=== PATIENT | female | born 1995 | race Caucasian/White ===

== ENCOUNTER 2018-04-03 14:30 | Emergency (ER) | payer BC, OTHER ==
[~2018-04-03] VITALS: Ht 170.2 cm; Wt 77.1 kg
[2018-04-03] MEDS ORDERED: MIRENA1 EACH MISC (15:07)
== END 2018-04-03 17:21 | disposition home or self-care (01) ==
LOC: ED 14:30
DX: R19.7 Diarrhea, unspecified (principal); Z88.5 Allergy status to narcotic agent; Z88.8 Allergy status to other drugs, medicaments and biological substances; Z79.899 Other long term (current) drug therapy
CPT/HCPCS: 80053; 81001; 84703; 85025; 87493; 96360; 96361; 99284-25; J7030

== ENCOUNTER 2025-02-14 20:33 | Emergency (ER) | payer OTHER ==
[~2025-02-14] VITALS: Ht 170.2 cm; Wt 80.0 kg
[~2025-02-14 20:33] MED LIST: MIRENA1 EACH MISC
[2025-02-14 21:08] LABS: BASOPHILS 0.6 % (0.1-1.2); EOSINOPHILS 1.7 % (0.7-5.8); LYMPHOCYTES 25.9 % (19.3-51.7); MCH 29.9 PG (25.6-32.2); MCHC 33.5 g/dL (32.2-35.5); MCV 89.4 fL (79.4-94.8); MONOCYTES 7.0 % (4.7-12.5); NEUTROPHILS 64.6 % (34.0-71.1); RBC 4.61 M/uL (3.93-5.22)
[2025-02-14] MEDS ORDERED: FAMOTIDINE 20 MG/ 2 ML VIAL IV ONE (21:15)
[2025-02-14 21:32] LABS: ALT (SGPT) 22.0 U/L (14-59); AST (SGOT) 17.0 U/L (15-37); GLOMERULAR FILTRATION RATE,EST 121.0 mL/min (>60); PROTEIN, TOTAL 8.0 g/dL (6.4-8.2); UREA NITROGEN 6.0 mg/dL (7-18)
[2025-02-15 00:09] LABS: BLOOD/HGB, URINE TRACE-L (Negative); KETONE, URINE >=80 (Negative); LEUK ESTERASE, URINE NEGATIVE (negative); NITRITE, URINE NEGATIVE (negative)
[2025-02-15 00:21] LABS: CRYSTALS, URINE NONE SEEN (0-1+); EPITHELIAL CELLS, URINE SQUAMOUS 1+ /lpf (0-1+)
[2025-02-15 00:22] LABS: BACTERIA, URINE RARE /hpf (negative); CASTS, URINE NONE SEEN \\lpf; REFLEX CULTURE, URINE No (No)
[2025-02-15] MEDS ORDERED: OMEPRAZOLE20 MG PO (01:46)
[2025-02-15 02:00] VITALS: BP 123/80
== END 2025-02-15 02:00 | disposition home or self-care (01) ==
LOC: ED 20:33
PROVIDERS: Internal Medicine
DX: K21.9 Gastro-esophageal reflux disease without esophagitis (principal); Z79.899 Other long term (current) drug therapy; Z88.8 Allergy status to other drugs, medicaments and biological substances
CPT/HCPCS: 36415; 74177; 76705; 80053; 81001; 83690; 83735; 84703; 85025; 96374; 96375; 99284-25; J2405; Q9967